=== PATIENT | female | born 1950 | race Caucasian/White ===

== ENCOUNTER 2021-08-26 09:55 | Day surgery (SDC) | payer MEDICARE ==
--- NOTE | 2021-08-26 10:08 | HP ---
DATE OF SURGERY: 08/26/2021 HISTORY OF PRESENT ILLNESS: The patient is a 70-year-old last upper endoscopy by Dr. Arceo, some report of an ulcer. She was taking some Protonix and later used Dexilant but did not resolve. Given the prior history of ulcer, she is in need of follow up upper endoscopy to evaluate healing of ulcer that she had at the time of GI endoscopy procedure. PAST MEDICAL HISTORY: She does have sinus problems with seasonal allergies. PAST SURGICAL HISTORY: Total hip. Back surgery. Cholecystectomy. Left heel surgery. Eye surgery. MEDICATIONS: Chlorthalidone, potassium, atorvastatin, Protonix, amlodipine, metoprolol. ALLERGIES: NKDA. FAMILY HISTORY: Cancer. Diabetes. SOCIAL HISTORY: No smoking or alcohol abuse. REVIEW OF SYSTEMS: Fourteen systems reviewed. Negative or noncontributory as above and per preadmission questionnaire. PHYSICAL EXAMINATION: GENERAL: No acute distress. HEENT: Sclerae nonicteric. NECK: No JVD. CHEST: Equal excursion, nonlabored breathing. CVS: Regular rate and rhythm. ABDOMEN: Soft. No peritoneal signs. EXTREMITIES: No significant edema. NEURO: Alert, oriented, moving extremities symmetrically. PSYCH: Appropriate mood and affect. IMPRESSION: History of gastric ulcer reported on past endoscopy by another parts runner. She needs follow up upper endoscopy to evaluate for healing and possible biopsy. She understands she needs to hold off her blood thinners for the procedure or there is a good chance it would be canceled. Risks and benefits explained in detail including but not limited to bleeding or infection, risk of bowel injury or perforation possibly requiring open procedure, risk of missed or nondiagnosis or incomplete exam possibly requiring barium swallow, other studies or procedures. General risk of anesthesia or sedation but not limited to, consent was obtained. Will proceed with EGD possible biopsy as an outpatient.
[2021-08-26] MEDS ORDERED: Lactated Ringers 1,000 ML IV SCH (10:30)
[2021-08-26] MEDS ORDERED: DIPRIVAN 200 MG/20 ML IV ONE (12:08)
[2021-08-26] MEDS ORDERED: Versed 2 MG/2 ML Injection ONE (12:11)
[2021-08-26 13:25] VITALS: BP 179/73; PULSE 71; O2SAT 97
--- NOTE | 2021-08-27 08:43 | OP ---
SURGERY DATE/TIME: 08/26/2021 1212 PREOPERATIVE DIAGNOSIS: Prior history of ulcer on gastroenterology endoscopy in the past, need for follow up endoscopy. POSTOPERATIVE DIAGNOSES: 1) Area of prior ulceration appeared to be healed. No active ulceration currently. 2) Mild gastritis. 3) Plus or minus short segment of distal esophagitis at the gastroesophageal junction. 4) ASA Class II. PROCEDURES: 1) EGD with cold biopsy of antrum for Helicobacter pylori. 2) Cold biopsy distal esophagus gastroesophageal junction to evaluate for short segment distal gastroesophagitis versus normal variation of the gastroesophageal junction. SURGEON: Dr. Thompson Browne. ANESTHESIA: MAC. ESTIMATED BLOOD LOSS: Minimal. INDICATIONS: As noted above. Risks and benefits explained in detail and not limited to and consent obtained. DESCRIPTION OF PROCEDURE AND FINDINGS: The patient is taken to the endoscopy room. MAC anesthesia introduced. After official time out and no disagreement with planned procedure, a bite block positioned. Video gastroscope easily passed down the esophagus through the patent pylorus to the third portion of the duodenum. Third, second, first portion of duodenum grossly unremarkable. Back in the stomach did have some evidence of gastritis but no visible active ulceration currently. The ulcer area that she previously been reported to have appeared healed. Cold biopsy taken in the antrum for Helicobacter pylori. Good hemostasis noted. On retroflex there did not appear to be any evidence of any large hiatal hernia. The scope pulled back. The gastroesophageal junction is about 37 to 38 cm. There is a small area distal esophagus cold biopsy taken to evaluate for early distal esophagitis versus normal variation of gastroesophageal junction. Good hemostasis is noted. Otherwise no signs of any obvious masses or other lesions. She had a little bit of foam in her stomach that had been irrigated out as well as possible. The scope is withdrawn. She tolerated the procedure well. There were no immediate complications. I will look for friend or family out in the waiting area.
== END 2021-08-26 13:30 | disposition home or self-care (01) ==
LOC: SDC 09:55
PROVIDERS: ATTEND Surgery
DX: Z09 Encounter for follow-up examination after completed treatment for conditions other than malignant neoplasm (principal); K29.70 Gastritis, unspecified, without bleeding; K20.90 Esophagitis, unspecified without bleeding; Z87.11 Personal history of peptic ulcer disease
CPT/HCPCS: 88305; J2250; J2704